=== PATIENT | female | born 1990 | race Caucasian/White ===

== ENCOUNTER 2022-11-06 08:48 | Emergency (ER) | payer OTHER ==
[~2022-11-06] VITALS: Ht 160 cm; Wt 60.3 kg
[2022-11-06 10:28] LABS: Influenza A, PCR NEGATIVE (NEGATIVE); Influenza B, PCR NEGATIVE (NEGATIVE); Resp Syncytial Virus, PCR NEGATIVE (NEGATIVE); SARS-Cov-2 (COVID-19) PCR, MMC NEGATIVE (NEGATIVE)
[2022-11-06 11:34] VITALS: BP 109/73
== END 2022-11-06 11:20 | disposition home or self-care (01) ==
LOC: ER 08:48
PROVIDERS: Student in an Organized Health Care Education/Training Program
DX: J02.9 Acute pharyngitis, unspecified (principal); Z20.822 Contact with and (suspected) exposure to COVID-19; Z87.19 Personal history of other diseases of the digestive system
CPT/HCPCS: 0241U; 87081; 87430; 96372; 99283-25; J1885

== ENCOUNTER 2023-09-21 14:00 | Emergency (ER) | payer OTHER ==
[~2023-09-21] VITALS: Ht 160 cm; Wt 59.0 kg
[2023-09-21 14:08] VITALS: BP 113/88
[2023-09-21 14:43] LABS: Source, Urine Clean Catch
[2023-09-21 14:47] LABS: Appearance, Urine Clear (Clear); Blood, Urine Neg (Neg); Glucose Qualitative, Urine Neg (Neg); Ketones, Urine Neg (Neg); Leukocyte Esterase, Urine 1+ (Neg); Nitrite, Urine Pos (Neg); Protein, Urine 1+ (Neg); Urobilinogen, Urine 4+ (Normal); pH, Urine 6.5 (5.0-8.0)
[2023-09-21 14:59] LABS: Bilirubin, Urine 3+ (Neg); Color, Urine Orange (P-Yellow)
[2023-09-21 15:03] LABS: Bacteria Few /hpf; Red Blood Cells, Urine 0-2 /hpf (0-2); Squamous Epithelial Cells Few /hpf (Few)
[2023-09-21] MEDS ORDERED: NITR100CA PO (15:16)
== END 2023-09-21 18:32 | disposition home or self-care (01) ==
LOC: ER 14:00
PROVIDERS: Student in an Organized Health Care Education/Training Program
DX: N39.0 Urinary tract infection, site not specified (principal); Z79.899 Other long term (current) drug therapy; Z88.0 Allergy status to penicillin
CPT/HCPCS: 81001; 81025; 87086; 87147; 99283